=== PATIENT | female | born 1945 | race Caucasian/White ===

== ENCOUNTER 2018-02-22 04:47 | Emergency (ER) | payer OTHER ==
[~2018-02-22] VITALS: Ht 160 cm; Wt 77.1 kg
--- NOTE | ~2018-02-22 | EKG ---
[address] [address] ELECTROCARDIOGRAM REPORT Name: SAM HERNANDEZ Room #: [facility]P [facility] [id number] Admission: 02/22/18 Attend Phys: Discharge: 02/22/18 Date of : 47 Report #: [id number] THIS REPORT FOR: //name// [facility] ED Test Date: 2018-02-22 Test Time: 04:57:45 Pat Name: SAM HERNANDEZ Department: Room: Gender: F Dance Coach: ISIDRO : 1945 Requested By: Can Troncoso Order Number: [id number] MD: Roscoe Rebolledo Measurements Intervals [place] Rate: 83 P: 55 TN: 153 QRS: -4 QRSD: 94 T: -1 QT: 390 QTc: 459 Interpretive Statements Sinus rhythm No previous ECG available for comparison Electronically Signed On 02-26-2018 16:58:03 CDT by Roscoe Rebolledo [email or web address] <ELECTRONICALLY SIGNED> By: Roscoe Rebolledo MD 02/26/18 [id number] MD TANVIR Bowman
[2018-02-22 05:11] LABS: ABSOLUTE NEUTROPHILS 10.3 thou/uL (1.4-8.2); BASOPHILS 0.2 % (0.0-2.0); EOSINOPHILS 0.1 % (0.0-3.0); HEMATOCRIT 38.3 % (37.0-47.0); HEMOGLOBIN 13.5 gm/dL (12.0-15.0); LYMPHOCYTES 6.8 % (24.0-44.0); MCHC 35.2 g/dL (28.0-37.0); MCV 90.7 fL (80.0-100.0); MONOCYTES 2.1 % (1.0-8.0); PLATELET COUNT 393 thou/uL (150-400); POLYS 90.8 % (36.0-66.0); RBC 4.22 mil/uL (4.20-5.00); RDW 14.2 % (10.5-14.5); WBC 11.3 thou/uL (4.0-11.0)
[2018-02-22 05:15] LABS: ANION GAP 16 mmol/L (7-16); BUN 30 mg/dL (7-18); CALCIUM 10.7 mg/dL (8.5-10.1); CHLORIDE 100 mmol/L (98-107); CO2 22 mmol/L (21-32); CREATININE 1.2 mg/dL (0.6-1.0); GLUCOSE 199 mg/dL (74-106); POTASSIUM 3.7 mmol/L (3.5-5.1); SODIUM 138 mmol/L (136-145)
[2018-02-22 05:18] LABS: APTT 24.8 Seconds (24.5-32.8); PROTIME 10.7 Seconds (9.3-11.4)
[2018-02-22 05:24] LABS: TROPONIN-I <0.06 ng/mL (<0.06)
[2018-02-22 06:13] LABS: URINE BILIRUBIN NEGATIVE (Negative); URINE BLOOD 2+ (Negative); URINE CLARITY CLEAR; URINE COLOR YELLOW; URINE GLUCOSE-RANDOM* NEGATIVE (Negative); URINE KETONES 2+ (Negative); URINE LEUKOCYTES-REFLEX NEGATIVE (Negative); URINE PROTEIN (DIPSTICK) 2+ (Negative); URINE SPECIFIC GRAVITY >= 1.030 (1.005-1.035); URINE UROBILINOGEN 0.2 E.U./dl (0.2-1.0)
[2018-02-22 06:25] LABS: URINE NITRITE-REFLEX POSITIVE (Negative)
[2018-02-22] MEDS ORDERED: PROTONIX40 MG PO (06:33)
[2018-02-22] MEDS ORDERED: ONDANSETRON HCL4 M2 PO (06:33)
[2018-02-22] MEDS ORDERED: KEFLEX500 M1 PO (06:35)
[2018-02-22 06:48] LABS: HYALINE CASTS 4-10 Moderate /LPF (None Seen)
[2018-02-22 06:50] LABS: SQUAMOUS 4-10 Moderate /LPF (0-3); URINE WBC-REFLEX 6-15 Few /HPF (0-5)
[2018-02-22 06:51] LABS: BACTERIA-REFLEX >30 Many /HPF (None Seen); CRYSTALS None Seen /LPF (None Seen)
[2018-02-22 06:52] LABS: URINE RBC 3-10 Few /HPF (0-2)
[2018-02-22 07:06] VITALS: BP 128/70
== END 2018-02-22 07:06 | disposition home or self-care (01) ==
LOC: ER 04:47
PROVIDERS: Emergency Medicine
DX: N39.0 Urinary tract infection, site not specified (principal)